=== PATIENT | female | born 1945 | race Caucasian/White ===

== ENCOUNTER 2017-02-13 17:56 | Emergency (ER) | payer MEDICARE, MEDICAID ==
[~2017-02-13] VITALS: Ht 149.9 cm; Wt 67.5 kg
[~2017-02-13 17:56] MED LIST: AMLO-147 PO; ATOR40TA68 PO; BACTDS PO; DOXA1TAB PO; IBUP-1542 PO; LOSA100T47 PO; METO200T4 PO; PIOG45TA6 PO; RANI150T5 PO; SITA50TA2 PO
[2017-02-13 17:59] VITALS: Ht 149.9 cm; Wt 67.5 kg
[2017-02-13] MEDS ORDERED: SOD CHLORIDE 0.9% 1,000 ML IV STA (19:28)
[2017-02-13] MEDS ORDERED: IBUPROFEN 600 MG TAB PO ONE (19:30)
[2017-02-13 20:18] LABS: ADD UMIC YES; URINE BILIRUBIN (Dip) NEGATIVE (NEGATIVE); URINE BLOOD (Dip) 1+ (NEGATIVE); URINE COLOR LT. YELLOW (YELLOW); URINE GLUCOSE (Dip) NEGATIVE (NEGATIVE); URINE KETONES (Dip) TRACE (NEGATIVE); URINE LEUKOCYTE ESTERASE (Dip) 1+ (NEGATIVE); URINE NITRITE (Dip) POSITIVE (NEGATIVE); URINE TOTAL PROTEIN (Dip) NEGATIVE (NEGATIVE); URINE UROBILINOGEN (Dip) 0.2 E.U./dL (0.1-1.0)
[2017-02-13 20:19] LABS: ADD SCAN DIFF NO
[2017-02-13 20:30] LABS: BASOPHILS % 0.3 % (0.0-2.0); EOSINOPHILS % 0.3 % (0.0-7.0); HEMATOCRIT 37.1 % (37.0-47.0); HEMOGLOBIN 12.2 g/dl (12.0-16.0); LYMPHOCYTES % 9.1 % (15.0-51.0); MEAN CORPUSCULAR HEMOGLOBIN 28.1 pg (29.0-33.0); MEAN CORPUSCULAR HGB CONC 32.9 g/dl (32.0-37.0); MEAN CORPUSCULAR VOLUME 85.5 fl (82.0-101.0); MEAN PLATELET VOLUME 10.9 fl (7.4-10.4); MONOCYTES % 9.1 % (0.0-11.0); NEUTROPHIL # 9.2 10^3/ul (1.6-7.5); NEUTROPHILS % 80.7 % (39.0-77.0); PLATELET COUNT 183 10^3/UL (140-415); RED BLOOD COUNT 4.34 10^6/ul (4.20-5.40); WHITE BLOOD COUNT 11.5 10^3/ul (4.8-10.8)
--- NOTE | 2017-02-13 20:31 | ERD ---
ER Documentation Chief Complaint Date/Time DATE: 02/13/17 TIME: 20:29 Chief Complaint Pt with nausea, tremors fevers X 3 days. HPI 71-year-old woman presents with 2-3 days of fever and chills and some nausea. She denies vomiting or diarrhea, no chest pain or shortness of breath, no cough , no rash, no dysuria, no headache or blurry vision. Patient denies recent antibiotic use, recent travel, or joint pain. ROS All systems reviewed and are negative except as per history of present illness. Medications Home Meds Active Scripts Cephalexin* (Keflex*) 500 Mg Capsule, 500 MG PO TID for 7 Days, CAP Prov:LEROY SAXENA MD 02/13/17 Ibuprofen* (Motrin*) 600 Mg Tab, 600 MG PO Q6H Y for PAIN AND OR ELEVATED TEMP, #30 TAB Prov:KYRIE OVALLE MD 09/13/16 Sulfamethoxazole-Trimethoprim* (Bactrim* DS) 800-160 Mg Tab, 1 TAB PO BID for 10 Days, TAB Prov:KYRIE OVALEL MD 09/13/16 Reported Medications Triamterene/Hydrochlorothiazid (Dyazide 37.5-25 Capsule) 1 Each Capsule, 1 EACH PO QAM, CAP 02/13/17 Metformin* (Glucophage*) 500 Mg Tab, 500 MG PO WITH MEALS, #90 TAB 02/13/17 Metformin* (Glucophage*) 500 Mg Tab, 500 MG PO WITH BREAKFAST DINNE, #30 TAB 02/13/17 Glipizide* (Glipizide*) 10 Mg Tablet, 10 MG PO BID, TAB 02/13/17 Doxazosin Mesylate* (Doxazosin Mesylate*) 1 Mg Tablet, 1 MG PO HS, TAB 09/13/16 Ranitidine Hcl* (Ranitidine Hcl*) 150 Mg Tablet, 150 MG PO Q12, #60 TAB 09/13/16 Atorvastatin* (Atorvastatin*) 40 Mg Tablet, 40 MG PO QHS, #30 TAB 09/13/16 Sitagliptin* (Januvia*) 50 Mg Tablet, 50 MG PO DAILY, #30 TAB 09/13/16 Losartan Potassium* (Cozaar*) 100 Mg Tablet, 100 MG PO DAILY 06/07/12 Metoprolol Succinate* (Toprol XL*) 200 Mg Tab.sr.24h, 200 MG PO DAILY 06/07/12 Amlodipine Besylate* (Amlodipine Besylate*) 10 Mg Tablet, 10 MG PO DAILY 06/07/12 Pioglitazone Hcl* (Actos*) 45 Mg Tablet, 45 MG PO DAILY 06/07/12 Allergies Allergies: Coded Allergies: No Known Allergy (Unverified , 02/13/17) PMhx/Soc Obesity, hypertension, diabetes mellitus History of Surgery: No Anesthesia Reaction: No Hx Neurological Disorder: No Hx Respiratory Disorders: No Hx Cardiac Disorders: Yes (HTN) Hx Psychiatric Problems: No Hx Miscellaneous Medical Probl: Yes (DM) Hx Alcohol Use: No Hx Substance Use: No Hx Tobacco Use: No Smoking Status: Never smoker FmHx Family History: diabetes Physical Exam Vitals Vital Signs Date Time Temp Pulse Resp B/P Pulse Ox O2 Delivery O2 Flow Rate FiO2 02/13/17 21:48 98.4 71 18 121/73 99 Room Air 02/13/17 21:15 98.4 78 18 127/67 98 Room Air 02/13/17 19:30 100.9 87 18 118/78 98 Room Air 02/13/17 17:59 102.0 111 18 130/73 97 Physical Exam GENERAL: Well-developed, well-nourished, appears dehydrated, febrile HEENT: Dry mucous membrane, pink conjunctiva, no cervical spine tenderness or step-off deformities, no goiter, no jaundice or icterus, extraocular movements intact without pain. No submandibular induration, and no pharyngeal erythema NEURO: Alert and oriented 3, cranial nerves II through XII intact bilaterally, pupils equal round reactive to light, no focal deficits or facial asymmetry, sensation intact distally Strength 5/5 in upper and lower extremities bilaterally CARDIAC: Tachycardic and regular, no murmurs rubs or gallops LUNGS: Clear bilaterally no wheezing crackles or stridor ABDOMEN: Soft nontender, no guarding, no rigidity, no rebound, no psoas sign no obturator sign. Normoactive bowel sounds SKIN: Warm and dry to touch, no abrasions, contusions, or hematomas, no lacerations, no ecchymosis, no target lesions, and without ulcers EXTREMITIES: No clubbing cyanosis or edema, calves are bilaterally symmetrical, no Homans sign, no popliteal cord sign. Distal pulses equal and bilateral PSYCH: Normal affect without agitation or irritability Result Diagram: 02/13/17200502/13/172005 Results 24 hrs Laboratory Tests Test 02/13/17 19:55 02/13/17 20:06 Urine Color LT. YELLOW Urine Clarity SL HAZY Urine pH 5.0 Urine Specific [place] 1.010 Urine Ketones TRACE Urine Nitrite POSITIVE Urine Bilirubin NEGATIVE Urine Urobilinogen 0.2 E.U./dL Urine Leukocyte Esterase 1+ Urine Microscopic RBC 2-5/HPF Urine Microscopic WBC 10-25/HPF Urine Squamous Epithelial Cells FEW Urine Bacteria MANY Urine Hemoglobin 1+ Urine Glucose NEGATIVE% Urine Total Protein NEGATIVE White Blood Count 11.510^3/ul Red Blood Count 4.3410^6/ul Hemoglobin 12.2g/dl Hematocrit 37.1% Mean Corpuscular Volume 85.5fl Mean Corpuscular Hemoglobin 28.1pg Mean Corpuscular Hemoglobin Concent 32.9g/dl Red Cell Distribution Width 13.0% Platelet Count 30010^3/UL Mean Platelet Volume 10.9fl Neutrophils % 80.7% Lymphocytes % 9.1% Monocytes % 9.1% Eosinophils % 0.3% Basophils % 0.3% Nucleated Red Blood Cells % 0.0/100WBC Neutrophils # 9.210^3/ul Lymphocytes # 1.010^3/ul Monocytes # 1.010^3/ul Eosinophils # 0.010^3/ul Basophils # 0.010^3/ul Nucleated Red Blood Cells # 0.010^3/ul Prothrombin Time 13.2Sec Prothrombin Time Ratio 1.0 INR International Normalized Ratio 1.00 Sodium Level 134mmol/L Potassium Level 4.1mmol/L Chloride Level 93mmol/L Carbon Dioxide Level 24mmol/L Anion Gap 21 Blood Urea Nitrogen 26mg/dl Creatinine 1.70mg/dl Glucose Level 228mg/dl Lactic Acid Level 1.2mmol/L Calcium Level 8.8mg/dl Total Bilirubin 0.5mg/dl Direct Bilirubin 0.00mg/dl Indirect Bilirubin 0.5mg/dl Aspartate Amino Transf (AST/SGOT) 29IU/L Alanine Aminotransferase (ALT/SGPT) 62IU/L Alkaline Phosphatase 104IU/L Troponin I < 0.012ng/ml Total Protein 8.5g/dl Albumin 4.2g/dl Globulin 4.30g/dl Albumin/Globulin Ratio 0.97 Lipase 116U/L Current Medications Medications (Trade) Dose Ordered Sig/Anna Route PRN Reason Start Time Stop Time Status Last Admin Dose Admin Sodium Chloride (NS) 1,000 ml @ 1,000 mls/hr Q1H STAT IV 02/13/17 19:28 02/13/17 20:27 DC 02/13/17 20:10 Ibuprofen 600 mg 600 mg ONCE ONCE PO 02/13/17 19:30 02/13/17 19:32 DC 02/13/17 19:53 Ceftriaxone Sodium (Rocephin) 50 ml @ 100 mls/hr ONCE ONCE IVPB 02/13/17 21:00 02/13/17 21:29 DC 02/13/17 21:09 Procedures/MDM IV line was established patient was placed on hall monitor rhythm strip revealed a sinus tachycardia at 130 bpm. Blood and urine cultures have been ordered results are pending I will follow-up. EKG performed, read by me revealed a sinus tachycardia at 130 bpm, left axis deviation, narrow QRS complex with Q waves in inferior leads and poor R-wave progression precordial leads concerning for previous IA. Chest X-ray 1V Interpreted by me: Soft Tissue: No acute abnormalities Bones: No acute abnormalities Mediastinum/Cardiac Silhouette/Lungs: No acute abnormalities I administered 1 L normal saline intravenously, ibuprofen 600 mg p.o. with good effect. CBC was unremarkable, electrolytes revealed dehydration with a BUN/creatinine of 26/1.7, liver function tests were normal, troponin was negative, lactic acid was low. I do not suspect sepsis. Urine analysis was positive for infection. I treated the patient here with ceftriaxone 1 g IV. Patient symptoms have improved, she has defervesced, and her pulses improved to 80 bpm and normal. She will be treated as an outpatient with oral antibiotics. Differential diagnoses considered, included but not limited to acute coronary syndrome, pulmonary embolism, aortic dissection, abdominal aortic aneurysm, sepsis, stroke, meningitis, encephalitis, pneumonia, appendicitis, cholecystitis , bowel obstruction, pyelonephritis, nephrolithiasis, cystitis, as well as metabolic, hematologic, and electrolyte abnormalities. As well as abscess, cellulitis, fractures, and dislocations. Patient feels much better at this time, and vital signs are normal, symptoms have improved. I did give strict instructions to return to the ED if symptoms continue or worsen, patient will otherwise follow-up with primary care physician. Patient understood instructions and agreed to plan. Departure Diagnosis: Primary Impression: Acute cystitis Hematuria presence: without hematuria Qualified Code: N30.00 - Acute cystitis without hematuria Additional Impression: Dehydration Condition: Good LEROY SAXENA MD February 13, 2017 20:31
[2017-02-13 20:32] LABS: BACTERIA,URINE MANY; SQUAMOUS EPITHELIAL CELL,UR FEW
[2017-02-13 20:41] LABS: ALBUMIN 4.2 g/dl (3.3-4.9); CHLORIDE 93 mmol/L (97-110)
[2017-02-13 20:42] LABS: POTASSIUM 4.1 mmol/L (3.5-5.1); SODIUM 134 mmol/L (135-144)
[2017-02-13 20:44] LABS: ALANINE AMINOTRANSFERASE 62 IU/L (13-69); ALBUMIN/GLOBULIN RATIO 0.97; ALKALINE PHOSPHATASE 104 IU/L (42-121); ANION GAP 21 (8-16); ASPARTATE AMINO TRANSFERASE 29 IU/L (15-46); BILIRUBIN,INDIRECT 0.5 mg/dl (0-1.1); BILIRUBIN,TOTAL 0.5 mg/dl (0.2-1.3); BLOOD UREA NITROGEN 26 mg/dl (7-20); CARBON DIOXIDE 24 mmol/L (21-31); GLUCOSE 228 mg/dl (70-220); TOTAL PROTEIN 8.5 g/dl (6.1-8.1)
[2017-02-13 20:45] LABS: CALCIUM 8.8 mg/dl (8.4-10.2); PROTIME 13.2 Sec (12.2-14.2)
--- NOTE | 2017-02-13 20:55 | RADRPT ---
PROCEDURE: XR Chest. CLINICAL INDICATION: Abdominal pain. TECHNIQUE: Single frontal view of the chest. COMPARISON: None. FINDINGS: Cardiomegaly. Atherosclerotic calcifications in the thoracic aorta in the thoracic aorta is mildly tortuous. Lungs are clear. No signs of pleural fluid or pneumothorax are seen. The osseous structur es and soft tissues are unremarkable. IMPRESSION: No evidence for active cardiopulmonary disease. RPTAT: [facility] Physician [place] Date Time Electronically viewed and signed by Anny Thibodeaux Physician on 02/13/2017 20:54 RS/
[2017-02-13] MEDS ORDERED: CEFTRIAXONE 1 GM/50 ML (PMX) 50 ML IVPB ONE (21:00)
[2017-02-13 21:06] LABS: TROPONIN-I < 0.012 ng/ml (0.00-0.12)
[2017-02-13] MEDS ORDERED: GLIP-95 PO (21:08)
[2017-02-13] MEDS ORDERED: TRIA1CAP PO (21:08)
[2017-02-13] MEDS ORDERED: METF500T4 PO ×2 (21:08)
[2017-02-13] MEDS ORDERED: CEPH-443 PO (21:25)
[2017-02-13 21:48] VITALS: BP 121/73; PULSE 71; RESP 18; TEMP 98.4
== END 2017-02-13 21:50 | disposition home or self-care (01) ==
LOC: E/R 17:56
DX: N30.00 Acute cystitis without hematuria (principal); E86.0 Dehydration; I10 Essential (primary) hypertension; E11.9 Type 2 diabetes mellitus without complications; E66.9 Obesity, unspecified; R10.9 Unspecified abdominal pain; Z79.84 Long term (current) use of oral hypoglycemic drugs; Z68.30 Body mass index [BMI] 30.0-30.9, adult
CPT/HCPCS: 36415; 71010; 80053; 81001; 83605; 83690; 84484; 85025; 85610; 87040; 87086; 93005; 96374; 99285; J0696; J7030; 81003

== ENCOUNTER 2017-02-16 06:39 | Emergency (ER) | payer MEDICARE, MEDICAID ==
[~2017-02-16] VITALS: Ht 152.4 cm; Wt 67.0 kg
[~2017-02-16 06:39] MED LIST changes: +CEPH-443 PO; +GLIP-95 PO; +METF500T4 PO; +TRIA1CAP PO
[2017-02-16 06:49] VITALS: Ht 152.4 cm; Wt 67.0 kg
--- NOTE | 2017-02-16 09:54 | ERD ---
ER Documentation Chief Complaint Date/Time DATE: 02/16/17 TIME: 09:52 Chief Complaint positive blood culture HPI 71-year-old woman here for reevaluation after being called back for a positive blood culture drawn a few days ago. She was recently diagnosed with urinary tract infection and was initially treated with IV ceftriaxone followed up with oral cephalexin 3 times daily. She states she has been using cephalexin as prescribed and states all of her symptoms have improved, she has about 5 more days of antibiotic therapy left. She denies fevers or chills, no dysuria or abdominal pain, no weight loss, no weakness, no anorexia, no chest pain or shortness of breath. ROS All systems reviewed and are negative except as per history of present illness. Medications Home Meds Active Scripts Cephalexin* (Keflex*) 500 Mg Capsule, 500 MG PO TID for 7 Days, CAP Prov:LEROY SAXENA MD 02/13/17 Ibuprofen* (Motrin*) 600 Mg Tab, 600 MG PO Q6H Y for PAIN AND OR ELEVATED TEMP, #30 TAB Prov:KYRIE OVALLE MD 09/13/16 Sulfamethoxazole-Trimethoprim* (Bactrim* DS) 800-160 Mg Tab, 1 TAB PO BID for 10 Days, TAB Prov:KYRIE OVALLE MD 09/13/16 Reported Medications Triamterene/Hydrochlorothiazid (Dyazide 37.5-25 Capsule) 1 Each Capsule, 1 EACH PO QAM, CAP 02/13/17 Metformin* (Glucophage*) 500 Mg Tab, 500 MG PO WITH MEALS, #90 TAB 02/13/17 Metformin* (Glucophage*) 500 Mg Tab, 500 MG PO WITH BREAKFAST DINNE, #30 TAB 02/13/17 Glipizide* (Glipizide*) 10 Mg Tablet, 10 MG PO BID, TAB 02/13/17 Doxazosin Mesylate* (Doxazosin Mesylate*) 1 Mg Tablet, 1 MG PO HS, TAB 09/13/16 Ranitidine Hcl* (Ranitidine Hcl*) 150 Mg Tablet, 150 MG PO Q12, #60 TAB 09/13/16 Atorvastatin* (Atorvastatin*) 40 Mg Tablet, 40 MG PO QHS, #30 TAB 09/13/16 Sitagliptin* (Januvia*) 50 Mg Tablet, 50 MG PO DAILY, #30 TAB 09/13/16 Losartan Potassium* (Cozaar*) 100 Mg Tablet, 100 MG PO DAILY 06/07/12 Metoprolol Succinate* (Toprol XL*) 200 Mg Tab.sr.24h, 200 MG PO DAILY 06/07/12 Amlodipine Besylate* (Amlodipine Besylate*) 10 Mg Tablet, 10 MG PO DAILY 06/07/12 Pioglitazone Hcl* (Actos*) 45 Mg Tablet, 45 MG PO DAILY 06/07/12 Allergies Allergies: Coded Allergies: No Known Allergy (Unverified , 02/16/17) PMhx/Soc Gastritis, hypertension, diabetes mellitus History of Surgery: No Anesthesia Reaction: No Hx Neurological Disorder: No Hx Respiratory Disorders: No Hx Cardiac Disorders: Yes (HTN) Hx Psychiatric Problems: No Hx Miscellaneous Medical Probl: Yes (DM) Hx Alcohol Use: No Hx Substance Use: No Hx Tobacco Use: No Smoking Status: Never smoker FmHx Family History: diabetes Physical Exam Vitals Vital Signs Date Time Temp Pulse Resp B/P Pulse Ox O2 Delivery O2 Flow Rate FiO2 02/16/17 06:49 97.9 70 18 151/70 98 Physical Exam GENERAL: Well-developed, well-nourished, well-hydrated, in no apparent distress , looks nontoxic in appearance HEENT: Moist mucous membranes, pink conjunctiva, no cervical spine tenderness or step-off deformities, no goiter, no jaundice or icterus, extraocular movements intact without pain. No submandibular induration, and no pharyngeal erythema NEURO: Alert and oriented 3, cranial nerves II through XII intact bilaterally, pupils equal round reactive to light, no focal deficits or facial asymmetry, sensation intact distally Strength 5/5 in upper and lower extremities bilaterally CARDIAC: Regular rate and rhythm, no murmurs rubs or gallops LUNGS: Clear bilaterally no wheezing crackles or stridor ABDOMEN: Soft nontender, no guarding, no rigidity, no rebound, no psoas sign no obturator sign. Normoactive bowel sounds SKIN: Warm and dry to touch, no abrasions, contusions, or hematomas, no lacerations, no ecchymosis, no target lesions, and without ulcers EXTREMITIES: No clubbing cyanosis or edema, calves are bilaterally symmetrical, no Homans sign, no popliteal cord sign. Distal pulses equal and bilateral PSYCH: Normal affect without agitation or irritability Procedures/MDM I reviewed the patient's recent blood work and after thorough physical examination my recommendation was to continue antibiotics as prescribed and repeat a blood and urine culture after therapy is complete. Patient also has an appointment scheduled with her PMD. Differential diagnoses considered, included but not limited to acute coronary syndrome, pulmonary embolism, aortic dissection, abdominal aortic aneurysm, sepsis, stroke, meningitis, encephalitis, pneumonia, appendicitis, cholecystitis , bowel obstruction, pyelonephritis, nephrolithiasis, cystitis, as well as metabolic, hematologic, and electrolyte abnormalities. As well as abscess, cellulitis, fractures, and dislocations. Patient feels much better at this time, and vital signs are normal, symptoms have improved. I did give strict instructions to return to the ED if symptoms continue or worsen, patient will otherwise follow-up with primary care physician. Patient understood instructions and agreed to plan. Departure Diagnosis: Primary Impression: Blood bacterial culture positive Additional Impression: UTI (urinary tract infection) Urinary tract infection type: acute cystitis Hematuria presence: without hematuria Qualified Code: N30.00 - Acute cystitis without hematuria Condition: Good Patient Instructions: Blood Culture Referrals: JOHN CLAY (PCP) LEROY SAXENA MD February 16, 2017 09:54
== END 2017-02-16 07:40 | disposition home or self-care (01) ==
LOC: E/R 06:39
DX: R78.81 Bacteremia (principal); N30.00 Acute cystitis without hematuria; E11.9 Type 2 diabetes mellitus without complications; I10 Essential (primary) hypertension; Z79.84 Long term (current) use of oral hypoglycemic drugs
CPT/HCPCS: 99282